=== PATIENT | male | born 1980 | race Caucasian/White ===

== ENCOUNTER 2017-06-06 13:10 | Emergency (ER) | payer MEDICAID ==
[2017-06-06 13:20] VITALS: BP 136/61
[2017-06-06] MEDS ORDERED: cefTRIAXone 250 MG VIAL IM STA (14:38)
[2017-06-06] MEDS ORDERED: AZITHROMYCIN 250 MG TABLET PO STA (14:39)
--- NOTE | 2017-06-06 14:42 | ED Physician Documentation ---
History of Present Illness - Stated complaint Stated Complaint: MALE - Chief complaint Chief Complaint: General - History obtained from History obtained from: Patient - History of Present Illness Timing: How many days ago (3 days ago) Quality: burining sensation and sensitivity Worsened by: urinating Associated symptoms: none Review of Systems Constitutional: denies: Fever, Chills GI: denies: Abdominal Pain, Nausea, Constipation, Diarrhea : reports: Dysuria (some buringin with urination). denies: Frequency, Hesitancy, Unable to Void, Incontinent, Testicular pain, Testicular mass Skin: reports: Lesions (black spots on the glands of the penis) Musculoskeletal: denies: Extremity pain, Joint swelling Neurologic: denies: Generalized weakness PD PAST MEDICAL HISTORY - Past Medical History Past Medical History: No Cardiovascular: None Respiratory: None Neuro: None Endocrine/Autoimmune: None Musculoskeletal: None - Past Surgical History Past Surgical History: No - Present Medications Home Medications: Ambulatory Orders Medication Instructions Recorded Confirmed Hydrocodone/Acetaminophen 1 each PO Q6H PRN #15 tablet 11/10/13 [Hydrocodon-Acetaminophen 5-325] No Known Home Medications [No 11/10/13 11/10/13 Known Home Medications] cephALEXin [Keflex] 500 mg PO Q6H #28 capsule 11/10/13 predniSONE [Deltasone] 40 mg PO DAILY 5 Days tablet 11/10/13 - Allergies Allergies/Adverse Reactions: Allergies Allergy/AdvReac Type Severity Reaction Status Date / Time No Known Drug Allergies Allergy Verified 06/06/17 13:20 - Social History Does the pt smoke?: No Smoking Status: Never smoker Does the pt drink ETOH?: Yes ETOH Use: Beer Does the pt have substance abuse?: Yes Substance Use and Type: Marijuana - Immunizations Immunizations are current?: Yes - POLST Patient has POLST: No PD ED PE NORMAL - Vitals Vital signs reviewed: Yes - General General: Alert and oriented X 3 - HEENT HEENT: Moist mucous membranes - Abdomen Abdomen: Soft, Non tender, Non distended - Male Male : Other (circumcised, no testicular pain, no vessicles, no pustules, pt with flat well demarcated black spots on the glands of his penis. ) - Back Back: No CVA TTP - Derm Derm: Other (black spots on the glands of penis) - Neuro Neuro: Alert and oriented X 3 Eye Opening: Spontaneous Motor: Obeys Commands Verbal: Oriented GCS Score: 15 - Psych Psych: Normal mood Results - Vitals Vitals: Vital Signs - 24 hr 06/06/17 13:17 Temperature 36.2 C L Heart Rate 59 L Respiratory 16 Rate Blood Pressure 136/61 H O2 Saturation 98 Oxygen O2 Source Room air PD MEDICAL DECISION MAKING - ED course Complexity details: d/w patient ED course: pt w/o hx of any STI's. has one sexual partner now. His rash is not C/E HSV, syphilis or genital warts, no hx of trauma. lesions only located on the glands. he does have some pain with urination. We discussed no treatment today and waiting to see if the lesions improve/resolve (he does state that they are somewhat improving) or treat him today for GC/CT. i informed him that the treatment is ore for the urinary sx not the black spots because GC/CT do not show up this way. the pt expressed understanding and wanted treatment anyway. he was given rocephin and azithro here int he ER. He was given return precautions. Departure - Departure Disposition: 01 Home, Self Care Clinical Impression: Rash of genitalia Condition: Good Instructions: STDs Follow-Up: Katia Uriarte ARNP [Primary Care Provider] - Comments: Return to the ER for any new symptoms, worsening symptoms, inability to urinate or any other concerning symptoms.
[2017-06-06] MEDS ORDERED: LIDOCAINE 1% 2 ML VIAL ONE (14:47)
[2017-06-06] MEDS ORDERED: AZITHROMYCIN 250 MG TABLET PO ONE (14:47)
[2017-06-06] MEDS ORDERED: cefTRIAXone 250 MG VIAL ONE (14:47)
== END 2017-06-06 15:11 | disposition home or self-care (01) ==
LOC: ED 13:10
DX: R21 Rash and other nonspecific skin eruption (principal)
CPT/HCPCS: 96372; 99283; A9270

== ENCOUNTER 2017-06-19 09:30 | Outpatient (CLI) | payer MEDICAID | END 2017-06-19 09:31 | disposition home or self-care (01) | LOC: LAB.R 09:30 | PROVIDERS: ATTEND Physician Assistant Medical | DX: Z86.19 Personal history of other infectious and parasitic diseases (principal) | CPT/HCPCS: 87491; 87591 ==

== ENCOUNTER 2017-06-20 10:43 | Outpatient (CLI) | payer MEDICAID | END 2017-06-20 10:44 | disposition home or self-care (01) | LOC: LAB 10:43 | PROVIDERS: ATTEND Physician Assistant Medical | DX: Z86.19 Personal history of other infectious and parasitic diseases (principal) | CPT/HCPCS: 87491; 87591 ==

== ENCOUNTER 2017-07-11 17:20 | Outpatient (CLI) | payer MEDICAID ==
--- NOTE | 2017-07-11 20:26 | Ultrasound Report ---
EXAM: SCROTAL ULTRASOUND EXAM DATE: 07/11/2017 07:01 PM. CLINICAL HISTORY: SCROTAL PAIN. COMPARISON: None. TECHNIQUE: Real-time scanning was performed with static images obtained. Both color-flow and Doppler spectral analysis were utilized. FINDINGS: Right: Testis: 3.8 x 2.6 x 2.1 cm. Normal size and echotexture. No mass, calcification, or abnormal blood fl ow. Epididymis: 1.0 x 0.9 x 0.5 cm. Normal size and echotexture. No mass or abnormal blood flow. Hydrocele: None. Varicocele: None. Left: Testis: 3.4 x 2.6 x 2.1 cm. Normal size and echotexture. No mass, calcification, or abnormal blood fl ow. Epididymis: 0.9 x 0.8 x 0.6 cm. Normal size and echotexture. No mass or abnormal blood flow. There is an epididymal head cyst measuring up to 3 mm. Hydrocele: None. Varicocele: None. IMPRESSION: 1. The testicles image normally. 2. There is no epididymal head cyst on the left measuring 3 mm likely of no clinical significance. [facility] Referring Provider Line: [phone] SITE ID: [id number]
== END 2017-07-11 17:21 | disposition home or self-care (01) ==
LOC: DI 17:20
PROVIDERS: ATTEND Family Medicine
DX: N50.82 Scrotal pain (principal)
CPT/HCPCS: 76870

== ENCOUNTER 2018-04-11 08:30 | Emergency (ER) | payer MEDICAID ==
[2018-04-11] MEDS ORDERED: PROPARACAINE 0.5% OPHTH DROPS 15 ML EACHEYE STA (08:38)
--- NOTE | 2018-04-11 08:52 | ED Physician Documentation ---
History of Present Illness - Stated complaint Stated Complaint: LT EYE INJ - Chief complaint Chief Complaint: General - Additonal information Additional information: large rock hit L eye does not feel bony injury but thinks he has an eye abrasion hard to open eye 2/2 photophobia can see from that eye Review of Systems Eyes: reports: Irritation PD PAST MEDICAL HISTORY - Past Medical History Cardiovascular: None Respiratory: None Endocrine/Autoimmune: None Musculoskeletal: None - Past Surgical History Past Surgical History: No - Present Medications Home Medications: Ambulatory Orders Medication Instructions Recorded Confirmed Erythromycin Base [Erythromycin] 1 applic OP Q4H #1 tub 04/11/18 - Allergies Allergies/Adverse Reactions: Allergies Allergy/AdvReac Type Severity Reaction Status Date / Time No Known Drug Allergies Allergy Verified 04/11/18 08:38 - Social History Does the pt smoke?: Yes Smoking Status: Current every day smoker Does the pt drink ETOH?: Yes Does the pt have substance abuse?: Yes - Immunizations Immunizations are current?: Yes - POLST Patient has POLST: No PD ED PE NORMAL - Vitals Vital signs reviewed: Yes - HEENT HEENT: PERRL, EOMI, Other (photophobic, L eye injected, no FB even with lid eversion, large corneal abrasion, pupil rective, orbits NT s step off, no hyphema) Results - Vitals Vitals: Vital Signs - 24 hr 04/11/18 08:33 Temperature 36.8 C Heart Rate 55 L Respiratory 15 Rate Blood Pressure 137/80 H O2 Saturation 99 Oxygen O2 Source Room air PD MEDICAL DECISION MAKING - Sepsis Event Vital Signs: Vital Signs - 24 hr 04/11/18 08:33 Temperature 36.8 C Heart Rate 55 L Respiratory 15 Rate Blood Pressure 137/80 H O2 Saturation 99 Oxygen O2 Source Room air Departure - Departure Disposition: 01 Home, Self Care Clinical Impression: Corneal abrasion, left Qualifiers: Encounter type: initial encounter Qualified Code(s): S05.02XA - Injury of conjunctiva and corneal abrasion without foreign body, left eye, initial encounter Condition: Good Instructions: ED Eye Injury Corneal Abrasion Prescriptions: Erythromycin Base [Erythromycin] 1 applic OP Q4H #1 tub Comments: Apply the eye ointment every 4 hr while awake for 5 days Motrin and cool compresses for the pain Follow up with the eye doctor for a recheck Saturday (you need to call to schedule) Return if worse Forms: Activity restrictions
[2018-04-11] MEDS ORDERED: ERYTHROMYCIN OPHTH OINT 1 GM TUBE LEFTEYE STA (09:02)
[2018-04-11] MEDS ORDERED: IBUPROFEN 400 MG TABLET PO STA (09:02)
[2018-04-11 09:53] VITALS: BP 128/71
== END 2018-04-11 09:13 | disposition home or self-care (01) ==
LOC: ED 08:30
DX: S05.02XA Injury of conjunctiva and corneal abrasion without foreign body, left eye, initial encounter (principal); W22.8XXA Striking against or struck by other objects, initial encounter; F17.200 Nicotine dependence, unspecified, uncomplicated
CPT/HCPCS: 99283; A9270; J3490

== ENCOUNTER 2019-09-04 08:57 | Emergency (ER) | payer MEDICAID ==
[2019-09-04 09:15] VITALS: BP 126/69
--- NOTE | 2019-09-04 09:24 | ED Physician Documentation ---
History of Present Illness - Stated complaint Stated Complaint: R KNEE PX - Chief complaint Chief Complaint: Trauma Ext - History obtained from History obtained from: Patient - History of Present Illness Timing: Yesterday Pain level max: 6 Pain level now: 4 - Additonal information Additional information: R knee pain s/p walking and stepping in a pothole yesterday. Injury to the R knee. twisting. worse with walking and better with rest. Review of Systems Constitutional: denies: Fever, Chills GI: denies: Vomiting, Diarrhea Skin: denies: Rash Musculoskeletal: denies: Neck pain, Back pain Neurologic: denies: Headache PD PAST MEDICAL HISTORY - Past Medical History Cardiovascular: None Respiratory: None Endocrine/Autoimmune: None Musculoskeletal: None - Past Surgical History Past Surgical History: No - Present Medications Home Medications: Ambulatory Orders Medication Instructions Recorded Confirmed Erythromycin Base [Erythromycin] 1 applic OP Q4H #1 tub 04/11/18 Meloxicam [Mobic] 15 mg PO DAILY PRN #20 tablet 09/04/19 - Allergies Allergies/Adverse Reactions: Allergies Allergy/AdvReac Type Severity Reaction Status Date / Time No Known Drug Allergies Allergy Verified 09/04/19 09:13 - Social History Does the pt smoke?: Yes Smoking Status: Current every day smoker Does the pt drink ETOH?: Yes Does the pt have substance abuse?: Yes - Immunizations Immunizations are current?: Yes - POLST Patient has POLST: No PD ED PE NORMAL - Vitals Vital signs reviewed: Yes - General General: Alert and oriented X 3, No acute distress, Well developed/nourished - HEENT HEENT: Moist mucous membranes - Neck Neck: Supple, no meningeal sign - Cardiac Cardiac: RRR - Respiratory Respiratory: No respiratory distress, Clear bilaterally - Abdomen Abdomen: Soft, Non tender, Non distended - Derm Derm: Warm and dry - Extremities Extremities: Other (R LE - Tender to palpation over the distal quadriceps. Patellar tendon is intact. Mild swelling to the superior medial aspect of the right knee. Pain with extension. Neurovascularly intact. No tenderness along the medial or lateral joint lines. ACL, PCL, LCL, MCL are intact. No significant joint effusion. Otherwise normal examination of the right lower extremity) - Neuro Neuro: Alert and oriented X 3 - Psych Psych: Normal mood, Normal affect Results - Vitals Vitals: Vital Signs - 24 hr 09/04/19 09:13 Temperature 37.0 C Heart Rate 59 L Respiratory 15 Rate Blood Pressure 126/69 O2 Saturation 98 Oxygen O2 Source Room air - Rads (name of study) Right knee x-ray Radiology: Prelim report reviewed, EMP read contemporaneously, See rad report (No fracture identified. Moderate suprapatellar joint effusion. ) PD MEDICAL DECISION MAKING - ED course Complexity details: reviewed results, re-evaluated patient, considered differential, d/w patient ED course: Patient with a suprapatellar joint effusion. He will use a neoprene brace at home. Does not want crutches at this time. No evidence of ligamentous instability. Neurovascular intact. No evidence of infection. Patient counseled regarding signs and symptoms for which I believe and urgent re- evaluation would be necessary. Patient with good understanding of and agreement to plan and is comfortable going home at this time This document was made in part using voice recognition software. While efforts are made to proofread this document, sound alike and grammatical errors may occur. Departure - Departure Disposition: 01 Home, Self Care Clinical Impression: Suprapatellar effusion of knee Condition: Good Instructions: ED Effusion Knee Follow-Up: your,doctor in 1 week [Other] Prescriptions: Meloxicam [Mobic] 15 mg PO DAILY PRN #20 tablet PRN Reason: pain Comments: Return if you worsen. This should improve over the next week or so. A neoprene knee brace may help as well. Discharge Date/Time: 09/04/19 10:09
--- NOTE | 2019-09-04 09:44 | XRAY Report ---
Reason: R knee pain s/p fall Procedure Date: 09/04/2019 Accession Number: [id number] / [id number] Procedure: XR - Knee 4 View RT CPT Code: Final Report FULL RESULT: EXAM: RIGHT KNEE RADIOGRAPHY EXAM DATE: 09/04/2019 09:30 AM. CLINICAL HISTORY: Right knee pain status post fall. COMPARISON: None. TECHNIQUE: 3 views. FINDINGS: Bones: Normal. No fractures or bone lesions. Joints: There is a moderate suprapatellar joint effusion. Soft Tissues: Normal. No soft tissue swelling. IMPRESSION: No fracture identified. Moderate suprapatellar joint effusion. [facility]
== END 2019-09-04 10:09 | disposition home or self-care (01) ==
LOC: ED 08:57
DX: M25.461 Effusion, right knee (principal); F17.200 Nicotine dependence, unspecified, uncomplicated
CPT/HCPCS: 99283; 99284